=== PATIENT | female | born 1985 | race Caucasian/White ===

== ENCOUNTER 2022-08-14 22:08 | Day surgery (SDC) | payer BC ==
[2022-08-14] MEDS ORDERED: ONDANSETRON 4 MG/2 ML VIAL IVPUSH ONE (22:56)
[2022-08-14] MEDS ORDERED: morphine CARPU-JECT 4 MG/1 ML DISP.SYRIN IVPUSH ONE (22:56)
[2022-08-14] MEDS ORDERED: ONDANSETRON 4 MG/2 ML VIAL ONE (23:15)
[2022-08-14] MEDS ORDERED: morphine SULFATE 4 MG/ML VIAL ONE (23:15)
[2022-08-14 23:57] LABS: PH,URINE 6.5 (5.0-8.0); URINE APPEARANCE CLEAR; URINE BILIRUBIN NEGATIVE (NEGATIVE); URINE COLOR YELLOW; URINE GLUCOSE (UA) NEGATIVE (NEGATIVE); URINE KETONE NEGATIVE (NEGATIVE); URINE LEUK ESTERASE NEGATIVE (NEGATIVE); URINE NITRITE NEGATIVE (NEGATIVE); URINE PROTEIN NEGATIVE (NEGATIVE); URINE UROBILINOGEN 0.2 mg/dL (0.2-1.0)
[2022-08-15] LABS: HCG,QUALITATIVE URINE Negative
[2022-08-15 00:07] LABS: BASO % 0.6 % (0-2.0); EOS % 0.7 % (0-4.5); HEMATOCRIT 41.5 % (32.4-45.2); HEMOGLOBIN 14.1 GM/dL (10.7-15.3); LYMPH % 11.5 % (8-40); MCH 31.2 pg (25.7-33.7); MEAN CELL VOLUME 91.8 fl (80-96); MEAN PLT VOLUME 8.4 fl (7.5-11.1); MONO % 5.6 % (3.8-10.2); NEUT % 81.6 % (42.8-82.8); PLATELET COUNT 356 10^3/uL (134-434); RBC 4.52 M/mm3 (3.60-5.2); RDW 13.4 % (11.6-15.6); WHITE BLOOD COUNT 16.9 K/mm3 (4.0-10.0)
[2022-08-15 00:18] LABS: INR 1.05 (0.83-1.09); PROTHROMBIN TIME (PATIENT) 12.1 SEC (9.7-13.0)
[2022-08-15 00:21] LABS: ACTIVATED PTT 31.5 SECONDS (25.2-36.5)
[2022-08-15 00:25] LABS: ALBUMIN 4.6 g/dl (3.4-5.0); CALCIUM 10.1 mg/dL (8.5-10.1)
[2022-08-15 00:29] LABS: BLOOD UREA NITROGEN 17.5 mg/dL (7-18); CREATININE 0.9 mg/dL (0.55-1.3)
[2022-08-15 00:30] LABS: TOT PROT 7.9 g/dl (6.4-8.2)
[2022-08-15 00:32] LABS: BILIRUBIN,TOTAL 0.3 mg/dL (0.2-1)
[2022-08-15] MEDS ORDERED: morphine SULFATE 4 MG/ML VIAL IVPUSH ONE (00:49)
[2022-08-15] MEDS ORDERED: ACETAMINOPHEN 1000 MG/100 ML BAG IVPB ONE (00:49)
[2022-08-15] MEDS ORDERED: morphine SULFATE 4 MG/ML VIAL ONE (00:53)
[2022-08-15] MEDS ORDERED: ACETAMINOPHEN INJECTION 100 ML IVPB ONE (00:53)
[2022-08-15] MEDS ORDERED: CEFTRIAXONE 1 GM in DEXTROSE 5%-WATER - 50 ML IVPB ONE (00:59)
[2022-08-15] MEDS ORDERED: cefTRIAXone SODIUM 1 GM VIAL ONE (01:29)
[2022-08-15] MEDS ORDERED: morphine SULFATE 4 MG/ML VIAL IVPUSH PRN ×2 (02:24→19:44)
[2022-08-15] MEDS: DEXTROSE 5%-NORMAL SALINE 1,000 ML IV SCH ×2 (03:24→10:12)
[2022-08-15] MEDS ORDERED: ONDANSETRON 4 MG/2 ML VIAL ONE ×2 (04:10→18:25)
[2022-08-15] MEDS: ONDANSETRON 4 MG/2 ML VIAL IVPUSH PRN ×2 (04:15→15:51)
[2022-08-15 04:26] VITALS: BMI 24.1
[2022-08-15] MEDS: ACETAMINOPHEN 1000 MG/100 ML BAG IVPB PRN ×2 (06:41→15:55)
[2022-08-15] MEDS ORDERED: PANTOPRAZOLE 40 MG TABLET PO ONE (08:06)
[2022-08-15 09:33] LABS: BASO % 0.1 % (0-2.0); HEMATOCRIT 38.3 % (32.4-45.2); HEMOGLOBIN 12.8 GM/dL (10.7-15.3); LYMPH % 3.7 % (8-40); MCH 30.5 pg (25.7-33.7); MCHC 33.3 g/dl (32.0-36.0); MEAN CELL VOLUME 91.7 fl (80-96); MEAN PLT VOLUME 8.8 fl (7.5-11.1); NEUT % 90.2 % (42.8-82.8); PLATELET COUNT 304 10^3/uL (134-434); RBC 4.18 M/mm3 (3.60-5.2); RDW 13.4 % (11.6-15.6); WHITE BLOOD COUNT 11.3 K/mm3 (4.0-10.0)
[2022-08-15 10:00] LABS: CALCIUM 8.6 mg/dL (8.5-10.1)
[2022-08-15 10:01] LABS: BLOOD UREA NITROGEN 11.9 mg/dL (7-18)
[2022-08-15 10:04] LABS: CREATININE 0.7 mg/dL (0.55-1.3)
[2022-08-15 12:13] LABS: BILIRUBIN,DIRECT 0.4 mg/dL (0.0-0.2)
[2022-08-15 12:14] LABS: TOT PROT 6.4 g/dl (6.4-8.2)
[2022-08-15 12:15] LABS: BILIRUBIN,TOTAL 0.8 mg/dL (0.2-1)
[2022-08-15 12:19] LABS: ALBUMIN 3.6 g/dl (3.4-5.0)
[2022-08-15] MEDS ORDERED: CEFTRIAXONE 1 GM in DEXTROSE 5%-WATER - 50 ML IVPB SCH (14:00)
[2022-08-15] MEDS ORDERED: BUPIVACAINE HCL/PF 0.25% (2.5MG/ML) 10 ML VIAL ONE (15:26)
[2022-08-15] MEDS ORDERED: ONDANSETRON 4 MG/2 ML VIAL IVPUSH PRN ×2 (16:33→19:44)
[2022-08-15] MEDS ORDERED: LACTATED RINGERS SOLUTION 1,000 ML IV SCH (16:45)
[2022-08-15] MEDS ORDERED: SUCCINYLCHOLINE CHLORIDE 200 MG/10 ML SYRINGE ONE (17:52)
[2022-08-15] MEDS ORDERED: MIDAZOLAM HCL 2 MG/2 ML SINGLE DOSE VIAL ONE (17:52)
[2022-08-15] MEDS ORDERED: ROCURONIUM BROMIDE 50 MG/5 ML SYRINGE ONE ×2 (17:52→17:53)
[2022-08-15] MEDS ORDERED: PROPOFOL 20 ML ONE (17:52)
[2022-08-15] MEDS ORDERED: DEXAMETHASONE SOD PHOSPHATE 4 MG/1 ML VIAL ONE (18:25)
[2022-08-15] MEDS ORDERED: KETOROLAC TROMETHAMINE 30 MG/1 ML VIAL ONE (18:25)
[2022-08-15] MEDS ORDERED: BUPIVACAINE HCL/PF 0.25% (2.5MG/ML) 10 ML VIAL IJ ONE (18:37)
[2022-08-15] MEDS: KETOROLAC TROMETHAMINE 30 MG/1 ML VIAL IVPUSH SCH (19:30)
[2022-08-15] MEDS ORDERED: ACETAMINOPHEN 1000 MG/100 ML BAG IVPB PRN (19:44)
[2022-08-15 23:18] VITALS: RESP 20
[2022-08-16] MEDS: KETOROLAC TROMETHAMINE 30 MG/1 ML VIAL IVPUSH SCH ×4 (02:47→14:30)
[2022-08-16] MEDS ORDERED: ACETAMINOPHEN 325 MG TABLET (FP) PO ONE (07:18)
[2022-08-16] MEDS ORDERED: ACETAMINOPHEN 325 MG TABLET (FP) PO PRN (07:18)
[2022-08-16] MEDS ORDERED: CEFTRIAXONE 1 GM in DEXTROSE 5%-WATER - 50 ML IVPB SCH (10:00)
[2022-08-16 10:22] VITALS: BP 139/80; PULSE 64; TEMP 99.4
[2022-08-16 12:41] LABS: BASO % 0.3 % (0-2.0); EOS % 0.3 % (0-4.5); HEMATOCRIT 32.4 % (32.4-45.2); HEMOGLOBIN 11.2 GM/dL (10.7-15.3); LYMPH % 10.7 % (8-40); MCH 31.8 pg (25.7-33.7); MCHC 34.6 g/dl (32.0-36.0); MEAN CELL VOLUME 91.9 fl (80-96); MEAN PLT VOLUME 8.8 fl (7.5-11.1); MONO % 9.8 % (3.8-10.2); NEUT % 78.9 % (42.8-82.8); PLATELET COUNT 218 10^3/uL (134-434); RBC 3.53 M/mm3 (3.60-5.2); RDW 13.1 % (11.6-15.6); WHITE BLOOD COUNT 12.7 K/mm3 (4.0-10.0)
[2022-08-16 13:02] LABS: CALCIUM 8.7 mg/dL (8.5-10.1)
[2022-08-16 13:04] LABS: ALBUMIN 3.2 g/dl (3.4-5.0)
[2022-08-16 13:07] LABS: BILIRUBIN,DIRECT 0.2 mg/dL (0.0-0.2); CREATININE 0.6 mg/dL (0.55-1.3)
[2022-08-16 13:08] LABS: BILIRUBIN,TOTAL 0.8 mg/dL (0.2-1); TOT PROT 5.8 g/dl (6.4-8.2)
[2022-08-16] MEDS ORDERED: POTASSIUM CHLORIDE TABS 10 MEQ TABLET.ER (FP) PO ONE (13:10)
== END 2022-08-16 14:33 | disposition home or self-care (01) ==
LOC: JER 22:08 → UNDOADMIN 08-15 00:57 → JASUSAT 08-15 00:57 → JERBED 08-15 00:57 → J8W 08-15 03:42 → JERBED 08-15 03:42 → J8W 08-15 03:42 → JASUSAT 08-16 14:33
PROVIDERS: ATTEND Family Medicine
PROC: 0FT44ZZ Resection of Gallbladder, Percutaneous Endoscopic Approach (ICD-10-PCS; principal; 2022-08-15 16:30)
DX: K81.0 Acute cholecystitis (principal)
CPT/HCPCS: 36415; 76705-TC; 80048; 80053; 80076; 81003; 83690; 84703; 85025; 85610; 85730; 86850; 86900; 86901; 88304-TC; 93005; 93010; 94010; 94760; 99285-25; C9803-CS; U0003; U0005

== ENCOUNTER 2023-03-25 22:07 | Observation (INO) | payer BC ==
[2023-03-26] MEDS ORDERED: PIPERACILLIN/TAZOB 3.375 GM 3.375 GM in DEXTROSE 5%-WATER - 50 ML IVPB ONE (01:07)
[2023-03-26 01:23] LABS: BASO % 0.8 % (0-2.0); EOS % 1.2 % (0-4.5); HEMATOCRIT 35.8 % (32.4-45.2); HEMOGLOBIN 12.1 GM/dL (10.7-15.3); LYMPH % 15.1 % (8-40); MCH 30.4 pg (25.7-33.7); MCHC 33.8 g/dl (32.0-36.0); MEAN PLT VOLUME 8.1 fl (7.5-11.1); NEUT % 72.9 % (42.8-82.8); PLATELET COUNT 257 10^3/uL (134-434); RBC 3.97 M/mm3 (3.60-5.2); RDW 13.5 % (11.6-15.6); WHITE BLOOD COUNT 11.4 K/mm3 (4.0-10.0)
[2023-03-26 01:33] LABS: POTASSIUM 3.5 mmol/L (3.5-5.1)
[2023-03-26 01:35] LABS: ALBUMIN 3.9 g/dl (3.4-5.0); CALCIUM 9.6 mg/dL (8.5-10.1)
[2023-03-26 01:36] LABS: BLOOD UREA NITROGEN 14.8 mg/dL (7-18)
[2023-03-26 01:39] LABS: CREATININE 0.8 mg/dL (0.55-1.3)
[2023-03-26 01:40] LABS: BILIRUBIN,TOTAL 0.3 mg/dL (0.2-1)
[2023-03-26 01:41] LABS: TOT PROT 7.1 g/dl (6.4-8.2)
[2023-03-26] MEDS ORDERED: ACETAMINOPHEN 1000 MG/100 ML BAG IVPB ONE (02:20)
[2023-03-26] MEDS ORDERED: ACETAMINOPHEN INJECTION 100 ML IVPB ONE (02:21)
[2023-03-26] MEDS ORDERED: PIPERACILLIN/TAZOB 3.375 GM 3.375 GM/50 ML BAG IVPB ONE (02:21)
[2023-03-26] MEDS ORDERED: DOCUSATE SODIUM 100 MG CAPSULE (FP) PO PRN (02:29)
[2023-03-26] MEDS ORDERED: ACETAMINOPHEN 1000 MG/100 ML BAG IVPB PRN (02:31)
[2023-03-26 03:38] VITALS: BMI 25.0
[2023-03-26] MEDS ORDERED: TETANUS AND DIPHTHERIA TOXOID 0.5 ML DISP.SYRIN IM ONE (12:47)
[2023-03-26] MEDS: PIPERACILLIN/TAZOB 3.375 GM 3.375 GM in DEXTROSE 5%-WATER - 50 ML IVPB SCH ×2 (13:30→17:20)
[2023-03-26] MEDS ORDERED: TETANUS, DIPHTHERIA TOX,ADULT 0.5 ML VIAL IM ONE (15:15)
[2023-03-26] MEDS: LACTOBACILLUS ACIDOPHILUS 1 TABLET PO SCH (15:17)
[2023-03-26] MEDS: KETOROLAC TROMETHAMINE 30 MG/1 ML VIAL IVPUSH SCH ×2 (15:19→17:19)
[2023-03-26] MEDS ORDERED: PIPERACILLIN/TAZOB 3.375 GM 3.375 GM in DEXTROSE 5%-WATER - 50 ML IVPB SCH (18:00)
[2023-03-27] MEDS: PIPERACILLIN/TAZOB 3.375 GM 3.375 GM in DEXTROSE 5%-WATER - 50 ML IVPB SCH ×2 (01:28→09:43)
[2023-03-27] MEDS: KETOROLAC TROMETHAMINE 30 MG/1 ML VIAL IVPUSH SCH ×2 (01:28→09:42)
[2023-03-27] MEDS ORDERED: IBUPROFEN 200 MG TABLET PO ONE (02:09)
[2023-03-27] MEDS ORDERED: ACETAMINOPHEN 325 MG TABLET (FP) PO PRN (03:00)
[2023-03-27 08:49] LABS: BASO % 1.1 % (0-2.0); EOS % 2.4 % (0-4.5); HEMATOCRIT 34.7 % (32.4-45.2); HEMOGLOBIN 12.1 GM/dL (10.7-15.3); LYMPH % 27.1 % (8-40); MCH 31.4 pg (25.7-33.7); MCHC 34.8 g/dl (32.0-36.0); MEAN CELL VOLUME 90.1 fl (80-96); MONO % 9.7 % (3.8-10.2); NEUT % 59.7 % (42.8-82.8); PLATELET COUNT 240 10^3/uL (134-434); RBC 3.85 M/mm3 (3.60-5.2); RDW 13.4 % (11.6-15.6); WHITE BLOOD COUNT 5.8 K/mm3 (4.0-10.0)
[2023-03-27 09:07] LABS: POTASSIUM 3.9 mmol/L (3.5-5.1)
[2023-03-27 09:13] LABS: BLOOD UREA NITROGEN 12.1 mg/dL (7-18); CALCIUM 9.1 mg/dL (8.5-10.1)
[2023-03-27 09:17] LABS: CREATININE 0.6 mg/dL (0.55-1.3)
[2023-03-27] MEDS: LACTOBACILLUS ACIDOPHILUS 1 TABLET PO SCH (09:43)
[2023-03-27 15:33] VITALS: BP 125/59; PULSE 72; RESP 18; TEMP 98.3
== END 2023-03-27 14:45 | disposition home or self-care (01) ==
LOC: JER 22:07 → JERBED 03-26 01:54 → INTOOBSV 03-26 01:54 → UNDOADMOB 03-26 01:54 → J8W 03-26 03:22 → JERBED 03-26 03:22 → J8W 03-26 13:39 → JERBED 03-26 13:39
PROVIDERS: ADMIT Family Medicine; ATTEND Family Medicine
PROC: 3E03329 Introduction of Other Anti-infective into Peripheral Vein, Percutaneous Approach (ICD-10-PCS; principal; 2023-03-26)
PROC: 3E033NZ Introduction of Analgesics, Hypnotics, Sedatives into Peripheral Vein, Percutaneous Approach (ICD-10-PCS; 2023-03-26)
PROC: 3E0234Z Introduction of Serum, Toxoid and Vaccine into Muscle, Percutaneous Approach (ICD-10-PCS; 2023-03-26)
DX: L03.114 Cellulitis of left upper limb (principal); I89.1 Lymphangitis; Z87.891 Personal history of nicotine dependence
CPT/HCPCS: 0241U-QW; 36415; 80048; 80053; 84703; 85025; 87040; 99285-25; G0378

== ENCOUNTER 2024-01-16 12:37 | Emergency (ER) | payer BC ==
[2024-01-16 12:57] VITALS: BP 127/57; PULSE 85; RESP 18; TEMP 98; BMI 25.2
[2024-01-16] MEDS ORDERED: ACETAMINOPHEN 325 MG TABLET (FP) ONE ×2 (13:15→13:39)
[2024-01-16] MEDS: ACETAMINOPHEN 325 MG TABLET (FP) PO ONE (13:16)
[2024-01-16 13:45] LABS: EPITHELIAL CELLS 0-5 /hpf
[2024-01-16 14:08] LABS: HCG,QUALITATIVE URINE Negative
== END 2024-01-16 14:15 | disposition home or self-care (01) ==
LOC: FER 12:37
DX: M54.2 Cervicalgia (principal); R05.9 Cough, unspecified; R52 Pain, unspecified; R53.81 Other malaise; J02.9 Acute pharyngitis, unspecified; S16.1XXA Strain of muscle, fascia and tendon at neck level, initial encounter; X58.XXXA Exposure to other specified factors, initial encounter; Z20.822 Contact with and (suspected) exposure to COVID-19
CPT/HCPCS: 0241U-QW; 71046-TC-FY; 81003; 81015; 84703; 87086; 87651; 99284-25